=== PATIENT | female | born 1970 | race Caucasian/White ===

== ENCOUNTER → 2020-12-11 12:55 | Outpatient (CLI) | payer OTHER, SELFPAY ==
--- NOTE | ~2020-12-11 | MM_ITS ---
EXAMINATION: MM screening matias BI w arvind HISTORY: Screening TECHNIQUE: Craniocaudal and mediolateral oblique 3-D tomosynthesis images were obtained and synthetic 2-D images were generated. CAD analysis was submitted and interpreted. COMPARISON: Comparison to multiple prior studies sequentially, with oldest reviewed study dated 05/2013. BREAST PARENCHYMAL COMPOSITION: The breasts are extremely dense, which lowers the sensitivity of mamm ography. FINDINGS: There is no evidence of suspicious mass, calcification, or architectural distortion to sugg est malignancy in either breast. There has been no suspicious interval change. IMPRESSION: 1. No mammographic evidence of malignancy. 2. Recommend routine screening mammography in one year. BI-RADS Category 1: Negative Reviewed, dictated and finalized at location A.
== END ==
PROVIDERS: Visit Provider Obstetrics & Gynecology
DX: Z12.31 Encounter for screening mammogram for malignant neoplasm of breast (principal)
CPT/HCPCS: 77063; 77067

== ENCOUNTER 2021-05-02 12:54 | Outpatient (CLI) | payer OTHER, SELFPAY ==
--- NOTE | ~2021-05-02 | MR_ITS ---
EXAMINATION: MR hip RT w con DATE: 05/02/2021 15:06 INDICATION: Right labral tear TECHNIQUE: Magnetic resonance (MR) arthrogram of the right hip was performed following intra-articula r gadolinium contrast injection and without intravenous contrast. Details of the hip joint injection have been dictated separately. Sequences included small field of view of the right hip with axial and sagittal T1-weighted FS SE and T2-weighted FS FSE and coronal T1-weighted SE and T2-weighted FS FSE . Additional T1-weighted FGRE images in a radial pattern oriented orthogonal to the acetabular rim we re obtained for evaluation of the labrum. COMPARISON: None. FINDINGS: Bones/labrum/cartilage: Alignment is normal. No fracture, avascular necrosis or pathologic marrow replacing process. There i s diffuse increased signal but no contrast enhancement throughout the right acetabular labrum which a ppears globular with likely intrasubstance ganglion cyst at the 12:00 position of the superolateral l abrum. No contrast enhancing labral tear plane. Deep chondral ulceration and fissuring at the anteros uperior to superior right acetabulum. There is prominent subarticular cystic change but without enhan cement to suggest communication with the joint space at the T12-11:00 position of the superolateral a cetabulum. Additional partial thickness chondral ulceration without degenerative subchondral changes at the apex and supralateral aspect of the femoral head. At least mild osteoarthritis at the left hip with additional subarticular cystic change at the anterosuperior left acetabulum. Fluid: No loose osteochondral bodies in the contrast opacified right hip joint space. Physiologic amount flu id in the left hip joint. No bursitis or other abnormal fluid collections. Soft tissues: Normal and symmetric muscle bulk and signal in the pelvis and visualized proximal thighs. The bilater al iliopsoas, gluteal and proximal hamstring tendons are normal. The uterus is not identified and has likely been surgically resected. 1.7 cm left ovarian cyst/follicle. Limited evaluation of visceral o rgans of the pelvis is otherwise unremarkable. No pathologically enlarged pelvic/inguinal lymphadeno zuleyka. IMPRESSION: 1. 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 2. 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 2. Mild osteoarthritis with subarticular cystic change at the anterosuperior acetabulum of the contra lateral left hip which is not diagnostically evaluated on the larger field of view images. Reviewed, dictated and finalized at location A. IMPRESSION: 1. 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 2. 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 2. Mild osteoarthritis with subarticular cystic change at the anterosuperior ac etabulum of the contralateral left hip which is not diagnostically evaluated on the larger field of view images.
--- NOTE | ~2021-05-02 | XR_ITS ---
EXAMINATION: XR fl inj hip RT for MR/CT DATE: 05/02/2021 14:23 INDICATION: Right hip labral tear TECHNIQUE: A time-out was performed to verify the patient's name, date of , and procedure to b e performed. The procedure including the risks, benefits, and alternatives was discussed with the pat ient. Risks discussed included bleeding and infection. The patient understood the risks and agreed to proceed. The skin overlying the right hip joint was prepped and draped in usual sterile fashion. A nesthetic was administered with 1% lidocaine subcutaneously. A 22 G needle was advanced under fluoro scopic guidance into the joint. Injection of 1 mL of Omnipaque 240 confirmed intra-articular positio n of the needle. Subsequently, injectate consisting of 12 mL of 2:1:1 mixture of sterile saline:Omni paque 240:1% lidocaine mixed 200:1 with 529 mg/mL Multihance gadolinium contrast was injected with in termittent fluoroscopy confirming intra-articular administration. The needle was removed and the entr y site was cleaned and dressed. There were no immediate complications. Fluoroscopy exposure time was 0.1 minutes. The total number of images was 8. FINDINGS: Real-time fluoroscopy demonstrates the needle in the right hip joint. IMPRESSION: 1. Right hip joint injection of dilute gadolinium contrast mixture for subsequent MRI arthrogram whic h will be dictated separately. Reviewed, dictated and finalized at location A. IMPRESSION: 1. Right hip joint injection of dilute gadolinium contrast mixture for subseque nt MRI arthrogram which will be dictated separately.
== END 2021-05-02 12:55 | disposition home or self-care (01) ==
PROVIDERS: PCP Family Medicine
DX: M16.11 Unilateral primary osteoarthritis, right hip (principal); S73.101A Unspecified sprain of right hip, initial encounter
CPT/HCPCS: 20610; 73722; 77002; A9577; Q9966

== ENCOUNTER → 2022-10-22 13:22 | Outpatient (CLI) | payer OTHER, SELFPAY ==
--- NOTE | ~2022-10-22 | MM_ITS ---
EXAMINATION: MM screening matias BI w arvind HISTORY: Screening mammogram TECHNIQUE: Craniocaudal and mediolateral oblique 3-D tomosynthesis images were obtained and synthetic 2-D images were generated. CAD analysis was submitted and interpreted. COMPARISON: December 11, 2020, February 23, 2019, March 18, 2017, 05/18/2014 bilateral screening mammogram exa minations BREAST PARENCHYMAL COMPOSITION: The breasts are heterogeneously dense, which may obscure small masses . FINDINGS: Chronic mammographic asymmetry dating back to 05/18/2014. There is no evidence of suspicious mass, calcification, or architectural distortion to suggest malignancy in either breast. There has b een no suspicious interval change. IMPRESSION: 1. No mammographic evidence of malignancy. 2. Recommend routine screening mammography in one year. BI-RADS Category 2: Benign finding(s). Reviewed, dictated and finalized at location A. S PORTER
== END ==
PROVIDERS: PCP Obstetrics & Gynecology; Visit Provider Obstetrics & Gynecology
DX: Z12.31 Encounter for screening mammogram for malignant neoplasm of breast (principal)
CPT/HCPCS: 77063; 77067

== ENCOUNTER 2024-05-27 10:59 | Outpatient (CLI) | payer OTHER, SELFPAY ==
--- NOTE | ~2024-05-27 | MM_ITS ---
EXAMINATION: MM screening matias BI w arvind HISTORY: Screening TECHNIQUE: Craniocaudal and mediolateral oblique 3-D tomosynthesis images were obtained and synthetic 2-D images were generated. CAD analysis was submitted and interpreted. COMPARISON: Comparison to multiple prior studies sequentially, with oldest reviewed study dated 09/14. BREAST PARENCHYMAL COMPOSITION: Dense: The breasts are heterogeneously dense, which may obscure small masses FINDINGS: There is no evidence of suspicious mass, calcification, or architectural distortion to sugg est malignancy in either breast. There has been no suspicious interval change. IMPRESSION: 1. No mammographic evidence of malignancy. 2. Recommend routine screening mammography in one year. BI-RADS Category 1: Negative Reviewed, dictated and finalized at location B.
== END 2024-05-27 11:00 | disposition home or self-care (01) ==
LOC: MICIMG 11:00
PROVIDERS: PCP Obstetrics & Gynecology; Visit Provider Obstetrics & Gynecology
DX: Z12.31 Encounter for screening mammogram for malignant neoplasm of breast (principal)
CPT/HCPCS: 77063; 77067